=== PATIENT | female | born 1995 | race African-American/Black ===

== ENCOUNTER 2017-01-27 20:34 | Emergency (ER) | payer OTHER ==
[~2017-01-27] VITALS: Ht 162.6 cm; Wt 113.4 kg
[~2017-01-27 20:34] MED LIST: ALBUTEROL SULF8.5 GM INH; AZITHROMYCIN250 MG ORAL; PREDNISONE10 MG ORAL
[2017-01-27] MEDS ORDERED: ALBUTEROL SULF8.5 GM INH (20:44)
[2017-01-27] MEDS ORDERED: PREDNISONE20 MG ORAL (20:44)
[2017-01-27] MEDS ORDERED: PredniSONE 20mg tab ORAL ONE (20:45)
[2017-01-27] MEDS: Albuterol ud Inhalation HHN SCH ×2 (20:51→20:59)
[2017-01-27] MEDS: Ipratropium 0.02% Inh Soln 2.5ml UD HHN SCH ×2 (20:51→20:59)
[2017-01-27 20:53] VITALS: BP 135/88
--- NOTE | 2017-01-27 21:11 | Emergency Room Report ---
History of Present Illness General Chief Complaint: Asthma Source: Patient, Medical Record Present Illness HPI 21YOF with known asthma, non-smoker, with 1 day of SOB, chest tightness. Denies recent cough, fever/chills, URI symptoms. Previously intubated 2 years ago. Has been on BIPAP before. Used home nebs without much improvement. Not on prednisone currently. Allergies: Coded Allergies: No Known Allergies (Unverified , 02/06/16) Patient History Past Medical History: asthma Past Surgical History: none Pertinent Family History: none Social History: Denies: alcohol use, drug use, smoking Last Menstrual Period: 12/02/2016 Now: No : 0 Para: 0 Immunizations: UTD Reviewed Nursing Documentation: PMH: Agreed, PSxH: Agreed Nursing Documentation-PMH Hx Asthma: Yes Review of Systems All Other Systems: negative except mentioned in HPI Physical Exam Vital Signs Date Time Temp Pulse Resp B/P Pulse Ox O2 Delivery O2 Flow Rate FiO2 01/27/17 20:35 98.4 80 16 127/78 99 Room Air 01/27/17 20:49 21 Sp02 EP Interpretation: reviewed, normal General Appearance: normal inspection, well appearing, no apparent distress, alert, GCS 15, non-toxic, other - Playing on iphone. No acute distress. Sitting in chair in [employer] Head: normocephalic, atraumatic Eyes: bilateral eye EOMI, bilateral eye PERRL ENT: normal ENT inspection, hearing grossly normal, normal voice Neck: normal inspection, full range of motion, supple, no bony tend Respiratory: normal inspection, lungs clear, normal breath sounds, no rhonchi, no respiratory distress, no retraction, no accessory muscle use, speaking full sentences, wheezing Cardiovascular #1: regular rate, rhythm, no edema Gastrointestinal: normal inspection, normal bowel sounds, non tender, soft, no guarding, no hernia Genitourinary: no CVA tenderness Musculoskeletal: normal inspection, back normal, normal range of motion, [place]' s Sign negative Neurologic: normal inspection, alert, oriented x3, responsive, marketing analytics analyst III-XII nml as tested, motor strength/tone normal, speech normal Psychiatric: normal inspection, judgement/insight normal, mood/affect normal Skin: normal inspection, normal color, no rash Lymphatic: normal inspection Medical Decision Making Diagnostic Impression: Primary Impression: Asthma attack ER Course Not hypoxic or tachypnic. Vitals stable Afebrile No rhonchi or other symptoms to suggest PNA or infection Wheezing improved s/p duonebs x3 and prednisone Rx NBI and Prednisone DC home with PMD followup Last Vital Signs Date Time Temp Pulse Resp B/P Pulse Ox O2 Delivery O2 Flow Rate FiO2 01/27/17 20:53 87 20 Room Air 21 01/27/17 20:53 98.4 135/88 99 Status: improved Disposition: HOME, SELF-CARE Condition: Improved Scripts Prednisone* (PREDNISONE*) 20 Mg Tablet 40 MG ORAL DAILY for 5 Days, #5 TAB Prov: JACKI SMITH M.D. 01/27/17 Albuterol Sulfate* (ALBUTEROL SULFATE MDI*) 8.5 Gm Hfa.aer.ad 2 PUFF INH Q6H, #1 EA 0 Refills Prov: JACKI SMITH M.D. 01/27/17 Patient Instructions: Asthma, Adult JACKI SMITH M.D. Jan 27, 2017 21:11
[2017-01-27 21:13] VITALS: BP 135/88
== END 2017-01-27 21:13 | disposition home or self-care (01) ==
LOC: EMR 20:51
DX: R10.9 Unspecified abdominal pain (principal); J45.909 Unspecified asthma, uncomplicated
CPT/HCPCS: 94640; 94664; 99284